=== PATIENT | male | born 1955 | race Caucasian/White ===

== ENCOUNTER 2018-02-04 12:13 | Emergency (ER) | payer BC, SELFPAY ==
[2018-02-04 12:15] VITALS: BP 158/98; PULSE 90; RESP 18; TEMP 36.7; O2SAT 98; BMI 32.3
--- NOTE | 2018-02-04 12:34 | RAD_ITS ---
STUDY: X-RAY - RIGHT TIBIA AND FIBULA REASON FOR EXAM: Male, 62 years old. History of a prior tibial injury with surgery. The patient now presents with oozing. TECHNIQUE: 3 view(s) of the tibia and fibula were obtained. COMPARISON: None. FINDINGS: A linear hypodensity seen in the proximal lateral aspect of the tibia anchored with a prior screw placement. Normal visualized fibula. The soft tissue structures are unremarkable. RAD/Tibia & Fibula 2 Views IMPRESSION: No acute abnormality is seen. Electronically Signed: Heath Hernandes MD at 13:46 EDT Tel [phone], Service support ,
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
[2018-02-04 13:10] LABS: Mucous, Urine 0 SEEN /hpf (<or=2+)
[2018-02-04 13:13] LABS: Absolute Lymphocyte Count 1.73 X10^3/ul (0.83-4.51); Absolute Neutrophil Count 5.1 X10^3/uL (2.0-7.7); Basophil# 0.03 X10^3/uL; Basophil% 0.4 % (0-1); Eosinophil# 0.26 X10^3/uL; Eosinophils% 3.2 % (0-5); Hematocrit 40.7 % (40-54); Hemoglobin 13.6 g/dl (13.0-16.5); Lymphocyte # 1.73 X10^3/ul (4.0); Lymphocyte % 21.3 % (19-41); Mean Corp Hgb Conc 33.4 g/gl (32-36); Mean Corpuscular Hgb 30.7 pg (27.0-32.0); Mean Corpuscular Volume 91.9 fL (80-94); Mean Platelet Vol. 9.8 fl (6.2-12.0); Monocyte# 1.01 X10^3/uL; Monocyte% 12.4 % (0-10); Neutrophil # 5.08 X10^3/uL (2.7-7.7); Neutrophil % 62.6 % (47-70); Platelet Count 270 K/mm3 (150-450); RBC Distribution Width SD 43.8 fl (35.1-43.9); Red Blood Count 4.43 M/mm3 (4.6-6.2); White Blood Count 8.1 K/mm3 (4.4-11.0)
[2018-02-04 13:13] LABS: Color, Urine Yellow (Yellow); Glucose, Dipstick Normal (Normal); Ketone-Dipstick 5 mg/dl (Negative); Leukocyte Esterase-Dipstick 500 /ul (Negative); Nitrite-Dipstick Positive (Negative); Occult Blood-Urine 250 /ul (Negative); Protein-Dipstick 100 mg/dl (Negative); Specific Gravity, Urine 1.025 (1.002-1.030); Urine Clarity Sl. Cloudy (Clear); Urine Urobilinogen 4 mg/dl (Normal)
[2018-02-04 13:14] LABS: POSITIVE COUNT NO; POSITIVE DIFFERENTIAL NO; POSITIVE MORPHOLOGY NO
[2018-02-04 13:29] LABS: Bacteria 1+ /hpf (None Seen); Red Blood Cells-Urine 50-100 SEEN /hpf (0-5); Squamous Epithelial Cells - UA 0-5 SEEN /hpf (0-5); Urine Bilirubin Dipstick 1 mg/dL (Negative); White Blood Cells 5-10 SEEN /hpf (0-5); Yeast-Urine 1+ /hpf (None Seen)
[2018-02-04 13:31] LABS: Anion Gap 8 (5-15); BUN 14 mg/dL (7-18); BUN/Creat Ratio 15.5 RATIO (10-20); Calcium,Total 9.1 mg/dL (8.5-10.1); Chloride 103 mmol/L (98-107); EST Glomerular Filtration Rate 91 mL/min (>60); Est Glom Filt Rate - Afr Amer 110 mL/min (>60); Estimated Creatinine Clearance 97.41 ml/min; Glucose 140 mg/dL (74-106); Potassium 5.1 mmol/L (3.5-5.1); Sodium Level 139 mmol/L (136-145)
--- NOTE | 2018-02-04 14:21 | ED.DEP ---
ED Disposition - Plan for ED Patient: Disposition: Home or Assisted Living Chief Complaint: Lower Extremity Injury Instructions: ED Wound Infec After Surgery Prescriptions: Cephalexin [Keflex] 500 mg PO Q6 #40 cap Tizanidine HCl [Zanaflex] 2 mg PO Q8H #20 tab Referrals: Care Physician,No Primary [NON-STAFF] -
[2018-02-04 14:32] VITALS: BP 131/81; PULSE 73; RESP 16; O2SAT 96
--- NOTE | 2018-02-04 14:37 | ED.RN ---
puncture wound to right calf cleansed with yvette-hex. sterile bandaid applied. Signs and symptoms of wound infection reviewed
== END 2018-02-04 14:37 | disposition home or self-care (01) ==
PROVIDERS: Emergency Provider Emergency Medicine; Family Provider Student in an Organized Health Care Education/Training Program; PCP Student in an Organized Health Care Education/Training Program
DX: M62.838 Other muscle spasm (principal); T81.49XA Infection following a procedure, other surgical site, initial encounter; L08.9 Local infection of the skin and subcutaneous tissue, unspecified; Z86.718 Personal history of other venous thrombosis and embolism; Z79.02 Long term (current) use of antithrombotics/antiplatelets; Z79.899 Other long term (current) drug therapy
CPT/HCPCS: 73590; 80048; 81001; 84484; 85025; 99285; A4216

== ENCOUNTER 2018-06-10 17:00 | Outpatient (RCR) | payer BC, SELFPAY ==
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
== END 2018-06-10 19:00 | disposition home or self-care (01) ==
LOC: PT 17:00
PROVIDERS: Family Provider Student in an Organized Health Care Education/Training Program; PCP Student in an Organized Health Care Education/Training Program; Referring Provider Student in an Organized Health Care Education/Training Program; Visit Provider Student in an Organized Health Care Education/Training Program
DX: M62.838 Other muscle spasm (principal); M54.2 Cervicalgia; S49.92XS Unspecified injury of left shoulder and upper arm, sequela; S46.112S Strain of muscle, fascia and tendon of long head of biceps, left arm, sequela; S72.8X1G Other fracture of right femur, subsequent encounter for closed fracture with delayed healing; R29.898 Other symptoms and signs involving the musculoskeletal system
CPT/HCPCS: 97035; 97110; 97163; 97530

== ENCOUNTER 2020-09-05 01:29 | Emergency (ER) | payer BC, SELFPAY ==
[2020-09-05 01:31] VITALS: BP 157/80; PULSE 78; RESP 16; TEMP 36.8; O2SAT 96; BMI 32.8
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
[2020-09-05] MEDS: Morphine 4 MG/ML Syringe IM (02:00)
== END 2020-09-05 02:22 | disposition home or self-care (01) ==
LOC: ED 02:04
PROVIDERS: Emergency Provider Emergency Medicine; PCP Student in an Organized Health Care Education/Training Program
DX: M25.512 Pain in left shoulder (principal); G89.29 Other chronic pain; M54.10 Radiculopathy, site unspecified; I10 Essential (primary) hypertension; Z79.899 Other long term (current) drug therapy
CPT/HCPCS: 96372; 99282

== ENCOUNTER 2020-12-20 12:43 | Outpatient (RCR) | payer BC, SELFPAY ==
[2020-12-20 13:50] LABS: Hemoglobin 12.3 g/dL (13.0-16.5); Mean Corp Hgb Conc 31.5 g/dL (32-36); Mean Corpuscular Hgb 28.1 pg (27.0-32.0); Mean Platelet Vol. 9.9 fl (6.2-12.0); Platelet Count 382 K/mm3 (150-450); RBC Distribution Width CV 13.6 % (11.6-14.6); RBC Distribution Width SD 44.9 fl (35.1-43.9); Red Blood Count 4.38 M/mm3 (4.6-6.2); White Blood Count 9.8 K/mm3 (4.4-11.0)
[2020-12-20 14:02] LABS: Erythrocyte Sedimentation Rate 53 mm/hr (0-20)
[2020-12-20 14:04] LABS: Anion Gap 6 (5-15); BUN 10 mg/dL (7-18); BUN/Creat Ratio 11.4 RATIO (10-20); CRP 9.72 mg/L (0.0-3.0); Calcium,Total 9.2 mg/dL (8.5-10.1); Chloride 103 mmol/L (98-107); Creatinine, Serum 0.88 mg/dL (0.70-1.30); EST Glomerular Filtration Rate 93 mL/min (>60); Est Glom Filt Rate - Afr Amer 113 mL/min (>60); Glucose 111 mg/dL (74-106); Potassium 3.6 mmol/L (3.5-5.1); Sodium Level 137 mmol/L (136-145)
== END 2020-12-20 18:00 | disposition home or self-care (01) ==
LOC: HHLAB 12:43
PROVIDERS: PCP Student in an Organized Health Care Education/Training Program
DX: I10 Essential (primary) hypertension (principal); E11.9 Type 2 diabetes mellitus without complications; E78.5 Hyperlipidemia, unspecified
CPT/HCPCS: 80048; 85027; 85652; 86140

== ENCOUNTER 2021-01-17 10:02 | Outpatient (RCR) | payer BC, SELFPAY ==
[2020-12-28 17:28] LABS: Hematocrit 37.5 % (40-54); Hemoglobin 12.1 g/dL (13.0-16.5); Mean Corp Hgb Conc 32.3 g/dL (32-36); Mean Corpuscular Hgb 28.2 pg (27.0-32.0); Mean Corpuscular Volume 87.4 fL (80-94); Mean Platelet Vol. 10.1 fl (6.2-12.0); Platelet Count 325 K/mm3 (150-450); RBC Distribution Width SD 44.9 fl (35.1-43.9); Red Blood Count 4.29 M/mm3 (4.6-6.2)
[2020-12-28 18:20] LABS: Erythrocyte Sedimentation Rate 33 mm/hr (0-20)
[2020-12-28 18:29] LABS: Anion Gap 9 (5-15); BUN 11 mg/dL (7-18); BUN/Creat Ratio 15.2 RATIO (10-20); CRP 3.17 mg/L (0.0-3.0); Calcium,Total 9.3 mg/dL (8.5-10.1); Chloride 103 mmol/L (98-107); Creatinine, Serum 0.72 mg/dL (0.70-1.30); EST Glomerular Filtration Rate 116 mL/min (>60); Est Glom Filt Rate - Afr Amer 141 mL/min (>60); Glucose 87 mg/dL (74-106); Potassium 3.8 mmol/L (3.5-5.1); Sodium Level 138 mmol/L (136-145)
[2021-01-03 14:08] LABS: Erythrocyte Sedimentation Rate 30 mm/hr (0-20)
[2021-01-03 14:12] LABS: Hematocrit 38.4 % (40-54); Mean Corp Hgb Conc 31.3 g/dL (32-36); Mean Corpuscular Volume 89.7 fL (80-94); Mean Platelet Vol. 10.4 fl (6.2-12.0); Platelet Count 249 K/mm3 (150-450); RBC Distribution Width CV 14.1 % (11.6-14.6); Red Blood Count 4.28 M/mm3 (4.6-6.2); White Blood Count 5.8 K/mm3 (4.4-11.0)
[2021-01-03 14:19] LABS: Anion Gap 9 (5-15); BUN 12 mg/dL (7-18); CRP < 2.90 mg/L (0.0-3.0); Calcium,Total 9.1 mg/dL (8.5-10.1); Chloride 103 mmol/L (98-107); Creatinine, Serum 0.75 mg/dL (0.70-1.30); EST Glomerular Filtration Rate 112 mL/min (>60); Est Glom Filt Rate - Afr Amer 135 mL/min (>60); Glucose 157 mg/dL (74-106); Potassium 3.5 mmol/L (3.5-5.1); Sodium Level 138 mmol/L (136-145)
[2021-01-10 18:19] LABS: Hematocrit 38.3 % (40-54); Hemoglobin 12.5 g/dL (13.0-16.5); Mean Corp Hgb Conc 32.6 g/dL (32-36); Mean Corpuscular Hgb 29.1 pg (27.0-32.0); Mean Corpuscular Volume 89.3 fL (80-94); Mean Platelet Vol. 11.4 fl (6.2-12.0); Platelet Count 211 K/mm3 (150-450); RBC Distribution Width CV 14.5 % (11.6-14.6); RBC Distribution Width SD 46.7 fl (35.1-43.9); Red Blood Count 4.29 M/mm3 (4.6-6.2); White Blood Count 5.7 K/mm3 (4.4-11.0)
[2021-01-10 18:20] LABS: Anion Gap 10 (5-15); BUN 12 mg/dL (7-18); BUN/Creat Ratio 15.6 RATIO (10-20); CRP 2.94 mg/L (0.0-3.0); Calcium,Total 8.9 mg/dL (8.5-10.1); Chloride 105 mmol/L (98-107); Creatinine, Serum 0.77 mg/dL (0.70-1.30); EST Glomerular Filtration Rate 108 mL/min (>60); Est Glom Filt Rate - Afr Amer 131 mL/min (>60); Glucose 123 mg/dL (74-106); Potassium 3.8 mmol/L (3.5-5.1); Sodium Level 138 mmol/L (136-145)
[2021-01-10 18:21] LABS: Erythrocyte Sedimentation Rate 24 mm/hr (0-20)
[2021-01-17 10:37] LABS: Hematocrit 37.7 % (40-54); Hemoglobin 12.3 g/dL (13.0-16.5); Mean Corp Hgb Conc 32.6 g/dL (32-36); Mean Corpuscular Hgb 28.3 pg (27.0-32.0); Mean Corpuscular Volume 86.9 fL (80-94); Mean Platelet Vol. 10.6 fl (6.2-12.0); Platelet Count 186 K/mm3 (150-450); RBC Distribution Width SD 44.8 fl (35.1-43.9); Red Blood Count 4.34 M/mm3 (4.6-6.2); White Blood Count 4.3 K/mm3 (4.4-11.0)
[2021-01-17 10:45] LABS: Erythrocyte Sedimentation Rate 37 mm/hr (0-20)
[2021-01-17 10:50] LABS: Anion Gap 10 (5-15); BUN 9 mg/dL (7-18); BUN/Creat Ratio 10.7 RATIO (10-20); Calcium,Total 8.6 mg/dL (8.5-10.1); Chloride 102 mmol/L (98-107); Creatinine, Serum 0.84 mg/dL (0.70-1.30); EST Glomerular Filtration Rate 98 mL/min (>60); Est Glom Filt Rate - Afr Amer 118 mL/min (>60); Glucose 164 mg/dL (74-106); Potassium 3.5 mmol/L (3.5-5.1); Sodium Level 137 mmol/L (136-145)
== END 2021-01-17 18:00 | disposition home or self-care (01) ==
LOC: HHLAB 10:02
PROVIDERS: PCP Student in an Organized Health Care Education/Training Program
DX: T81.32XA Disruption of internal operation (surgical) wound, not elsewhere classified, initial encounter (principal); T81.49XA Infection following a procedure, other surgical site, initial encounter
CPT/HCPCS: 80048; 85027; 85652; 86140

== ENCOUNTER 2024-05-06 13:09 | Emergency (ER) | payer MEDICARE, OTHER, SELFPAY ==
[2024-05-06 13:10] VITALS: BP 161/91; PULSE 80; RESP 15; TEMP 36; O2SAT 97; BMI 34.0
--- NOTE | 2024-05-06 14:18 | EDS_ITS ---
HPI HPI - Psych History of Present Illness Chief Complaint: Suicidal Detail of Chief Complaint: Neck pain and suicidal ideation Informant: patient and spouse/S.O. Narrative Narrative: Patient presents the emergency department complaint neck pain that he has had chronically for years. Patient had a spinal fusion 3 years ago. Patient fell in June 2023 off of a ladder and since that time has had worsening pain in his neck radiating down his left arm to his thumb index finger and middle finger. He has been seen by his primary care physician and is taking gabapentin. Patient has been through physical therapy. He had an MRI in February 2024 that showed no significant changes or abnormalities. He called his surgeons office today and stated that his pain was so bad that he wanted to and police was called to his home because they thought he was suicidal. Patient states that he is told multiple practitioners that his pain is so bad that he just wants to but that he has no plan on killing himself. states that several weeks ago he walked out of the house and told her to have a good life and walked around the town for about 3 hours before coming back. Patient is surprised that he has to be here at this time. He is never attempted self-harm in the past. He is currently not on any antidepressants. Patient used to be in pain management but has not seen pain management recently [facility] Medical History Hypertension Hypothyroidism Home Medications ?Medication ?Instructions ?Recorded ?Last Taken ?Type gabapentin 100 mg capsule 100 mg PO TID 05/06/24 Unknown History gabapentin 800 mg tablet 800 mg PO TID 05/06/24 Unknown History hydrocodone-acetaminophen 5-325mg 1 tab PO Q4H PRN PRN Pain 2 days 05/06/24 Unknown Rx 5mg-325mg #14 TABLETS ketorolac 10 mg tablet 10 mg PO Q6H PRN PRN pain 05/06/24 Unknown History levothyroxine 125 mcg tablet 125 mcg PO DAILY 05/06/24 Unknown History (Synthroid) lorazepam 2 mg tablet 2 mg PO BID PRN PRN anxiety 05/06/24 Unknown History losartan 100 mg tablet 100 mg PO DAILY 05/06/24 Unknown History metformin 500 mg tablet 500 mg PO TID 05/06/24 Unknown History ofloxacin 0.3 % ear drops 5 drp LEFT EAR Q24H 05/06/24 Unknown History Allergy/AdvReac Type Severity Reaction Status Date / Time No Known Allergies Allergy Verified 05/06/24 13:10 Social History Smoking Status: Never smoker ROS ROS ED Review of Systems ROS Unobtainable: other Constitutional Constitutional ED: Reports lethargy; Denies chills, fever(s), sweats or weight loss Eyes Eyes: Denies blurry vision, change in vision or diplopia ENT ENT ED: Denies rhinorrhea or sore throat Cardiovascular Cardiovascular: Denies chest pain, orthopnea or racing heartbeat Respiratory/Chest Respiratory/Chest: Reports dyspnea and dyspnea on exertion; Denies cough, orthopnea or sputum Gastrointestinal Gastrointestinal: Denies abdominal pain, diarrhea, nausea or vomiting Genitourinary Genitourinary ED: Denies dysuria, hematuria or urinary frequency Musculoskeletal Musculoskeletal: Reports neck pain; Denies arthralgias, back pain or myalgias Integumentary Denies abscess, Abrasions or rash Neurologic Neurologic: Denies headache(s) or weakness Psychiatric Psychiatric: Denies anxiety, depression or suicidal thoughts Endocrine Endocrinology: Denies polydipsia, polyphagia or polyuria Hematologic/Lymphatic Hematologic/Lymphatic: Denies easy bleeding, easy bruising or lymphadenopathy Allergic/Immunologic Allergic/Immunologic ED: Denies mouth swelling, tongue swelling or urticaria EXAM Physical Exam Const Vital Signs: 05/06/24 13:10 Temperature 96.8 F L Temperature Source Temporal Pulse Rate 80 Respiratory Rate 15 Blood Pressure 161/91 H Blood Pressure Mean 114 Pulse Ox 97 Oxygen Delivery Method Room Air Positive well nourished and well developed General Appearance ED: well developed and NAD HEENT Reports TM's clear and moist mucous membranes normocephalic and atraumatic; Negative for trauma or tenderness Tympanic Membrane ED: Yes TM's clear Eyes PERRL and EOMs intact bilaterally General Eye ED: Negative for pale conjunctiva or scleral icterus Neck no lymphadenopathy, supple and no JVD General: Negative for tenderness Chest Wall inspection of chest normal and palpation of chest normal Chest: Negative for tenderness Resp normal respiratory effort and clear to auscultation bilaterally Effort and Inspection: Negative for respiratory distress or pain with movement Auscultation: Negative for rhonchi, wheezes or diminished lung sounds Cardio regular rate, regular rhythm, S1 normal heart sound, S2 normal heart sound and no murmurs Peripheral Pulses: pulses 2+ throughout GI normal to inspection, nondistended, normoactive bowel sounds, soft to palpation, non-tender, non-distended and no masses Back/Spine no CVA tenderness and no thoracic nor lumbar tenderness Extremity normal to inspection General Extremety ED: Negative for edema General Extremity: Negative for edema Neuro oriented x3, CN's II-XII intact bilaterally, no sensory deficits noted and gait normal Sensorium / Orientation: awake, alert, oriented to person, oriented to place and oriented to time Motor Exam: strength 5/5 throughout and strength abnormal Psych mental status grossly normal Skin no rashes or lesions noted and no wounds MDM MDM MDM Narrative Medical decision making narrative: Patient presents with police escort for evaluation of depression and suicidal ideation. Patient is adamant that he has no plan on harming himself and denies feeling suicidal but just all the pain in his neck is making him feel like he does not want to be around anymore. Currently not on antidepressants but had been many years ago. Denies feeling homicidal. Denies hallucinations. Mental health workup initiated and he had a CBC with differential that was normal. Chemistries normal. Alcohol was negative and toxicology screen was negative. I had patient evaluated by social work. It is felt patient can be safety planned and set up with outpatient services and discharged to home. I discussed with patient providing him more pain medication including Vicodin or Percocet and he does not want to do that until he follows back up with his surgeon. Patient also will be referred to pain management. Prior to discharge she did ask and reconsidered having some narcotic pain medicine for home to help with the pain. I did order hydrocodone 14 tabs as needed pain. Lab Data Attestation: I reviewed the patient's lab results. Labs: Laboratory Results - last 24 hr 05/06/24 05/06/24 13:24 13:32 WBC 10.1 RBC 5.25 Hgb 15.8 Hct 46.9 MCV 89.3 MCH 30.1 MCHC 33.7 RDW Std Deviation 41.6 RDW Coeff of Chidi 12.7 Plt Count 252 MPV 10.4 Immature Gran % (Auto) 0.300 Neut % (Auto) 50.9 Lymph % (Auto) 33.1 [place] % (Auto) 11.7 H Eos % (Auto) 3.2 Baso % (Auto) 0.8 Absolute Neuts (auto) 5.2 Absolute Lymphs (auto) 3.35 Nucleated RBC % 0 Sodium 138 Potassium 4.0 Chloride 107 Carbon Dioxide 24.0 Anion Gap 7 BUN 16 Creatinine 0.98 Estim Creat Clear Calc 98.03 Est GFR (MDRD) Af Amer 98 Est GFR (MDRD) Non-Af 81 BUN/Creatinine Ratio 16.4 Glucose 132 H Calcium 9.3 Urine Opiates Screen NEGATIVE Urine Methadone Screen NEGATIVE Ur Barbiturates Screen NEGATIVE Ur Phencyclidine Scrn NEGATIVE Ur Amphetamines Screen NEGATIVE MDMA (Ecstasy) Screen NEGATIVE U Benzodiazepines Scrn NEGATIVE Urine Cocaine Screen NEGATIVE U Cannabinoids Screen NEGATIVE Ur Drug Screen Comment Ethyl Alcohol < 3.0 Discharge Plan Triage Chief Complaint: Suicidal ED Provider: Celia Koenig Dx/Rx/DC Orders Clinical Impression: Neck pain, Depression Instructions: Depression: Tips to Help Yourself, CONTRACT, No Harm, ED Back and Neck Pain, General Prescriptions: New hydrocodone-acetaminophen 5-325 mg tablet 1 tab PO Q4H PRN PRN (Reason: Pain) 2 Days Qty: 14 0RF No Action ketorolac 10 mg tablet 10 mg PO Q6H PRN PRN (Reason: pain) gabapentin 800 mg tablet 800 mg PO TID lorazepam 2 mg tablet 2 mg PO BID PRN PRN (Reason: anxiety) gabapentin 100 mg capsule 100 mg PO TID losartan 100 mg tablet 100 mg PO DAILY metformin 500 mg tablet 500 mg PO TID ofloxacin 0.3 % drops 5 drp LEFT EAR Q24H levothyroxine [Synthroid] 125 mcg tablet 125 mcg PO DAILY Primary Care Provider: David Hale Referrals: David Hale DO [Primary Care Provider] - Abhi Dumont MD [Med Staff - Active Staff] - As Needed Print Language: Turkish Disposition Disposition: Home, Self Care
[2024-05-06 14:32] LABS: Absolute Lymphocyte Count 3.35 X10^3/uL (0.83-4.51); Absolute Neutrophil Count 5.2 X10^3/uL (2.0-7.7); Basophil# 0.08 X10^3/uL; Basophil% 0.8 % (0-1); Eosinophil# 0.32 X10^3/uL; Eosinophils% 3.2 % (0-5); Hematocrit 46.9 % (40-54); Hemoglobin 15.8 g/dL (13.0-16.5); Lymphocyte # 3.35 X10^3/ul (0.83-4.51); Lymphocyte % 33.1 % (19-41); Mean Corp Hgb Conc 33.7 g/dL (32-36); Mean Corpuscular Hgb 30.1 pg (27.0-32.0); Mean Corpuscular Volume 89.3 fL (80-94); Mean Platelet Vol. 10.4 fl (6.2-12.0); Monocyte# 1.18 X10^3/uL; Monocyte% 11.7 % (0-10); NRBC Flagged by Analyzer 0 % (0-5); Neutrophil # 5.15 X10^3/uL (2.7-7.7); Neutrophil % 50.9 % (47-70); Platelet Count 252 K/mm3 (150-450); RBC Distribution Width CV 12.7 % (11.6-14.6); RBC Distribution Width SD 41.6 fl (35.1-43.9); Red Blood Count 5.25 M/mm3 (4.6-6.2); White Blood Count 10.1 K/mm3 (4.4-11.0)
--- NOTE | 2024-05-06 14:49 | ED.RN ---
spoke with charge nurse, no need for sitter at this time. pt does have pink slip.
[2024-05-06 14:52] LABS: Alcohol, Blood (Medical)-Serum < 3.0 mg/dL
[2024-05-06 15:00] LABS: Anion Gap 7 (5-15); BUN 16 mg/dL (7-18); BUN/Creat Ratio 16.4 RATIO (10-20); Calcium,Total 9.3 mg/dL (8.5-10.1); Chloride 107 mmol/L (98-107); Creatinine, Serum 0.98 mg/dL (0.70-1.30); EST Glomerular Filtration Rate 81 mL/min (>60); Est Glom Filt Rate - Afr Amer 98 mL/min (>60); Estimated Creatinine Clearance 98.03 ml/min; Glucose 132 mg/dL (74-106); Sodium Level 138 mmol/L (136-145)
[2024-05-06 15:05] LABS: Amphetamine Urine VISTA NEGATIVE (<1000 ng/mL); Barbiturate Urine VISTA NEGATIVE (< 200 ng/mL); Benzodiazepine Urine VISTA NEGATIVE (< 200 ng/mL); Cocaine Urine VISTA NEGATIVE (< 300 ng/mL); Ecstacy Urine VISTA NEGATIVE (< 500 ng/mL); Methadone Urine VISTA NEGATIVE (< 300 ng/mL); PCP Urine VISTA NEGATIVE (< 25 ng/mL); THC Urine VISTA NEGATIVE (< 50 ng/mL); Vista UDS pH Range 5
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
--- NOTE | 2024-05-07 11:02 | CM.ED ---
Social Work SW attempted to call to follow up after patient was sent home with safety plan on 05/06/2024. Wifes phone went to message stating her voicemail was full and she was unable to accept messages. Will attempt again later today. Adri Song, SPECIAL EFFECTS PERSON, QUALITY INTERN
== END 2024-05-06 18:47 | disposition home or self-care (01) ==
PROVIDERS: Emergency Provider Emergency Medicine; PCP Student in an Organized Health Care Education/Training Program; Visit Provider Emergency Medicine
DX: M54.2 Cervicalgia (principal); R45.851 Suicidal ideations; F32.A Depression, unspecified; I10 Essential (primary) hypertension; Z98.1 Arthrodesis status; E03.9 Hypothyroidism, unspecified; Z79.890 Hormone replacement therapy; Z79.84 Long term (current) use of oral hypoglycemic drugs
CPT/HCPCS: 80048; 80307; 82077; 85025; 99284